=== PATIENT | male | born 1995 | race Caucasian/White ===

== ENCOUNTER 2022-07-06 21:02 | Emergency (ER) | payer OTHER ==
[2022-07-06 23:58] LABS: HIV (1/2) Antibody/Antigen Non-Reactive (NonReactive); HIV 1/2 INDEX 0.23 S/CO (<1.00); Hep C IgG Ab Non-Reactive (NonReactive); Hep C Index 0.07 S/CO (0-0.79)
[2022-07-07 00:45] LABS: HBSAB Concentration 2636.94 mIU/mL; Hep B Surf AB Reactive (NonReactive)
== END 2022-07-06 23:30 | disposition home or self-care (01) ==
LOC: ERS 21:02
DX: S80.212A Abrasion, left knee, initial encounter (principal); S40.812A Abrasion of left upper arm, initial encounter; S60.512A Abrasion of left hand, initial encounter; F17.210 Nicotine dependence, cigarettes, uncomplicated; Z77.21 Contact with and (suspected) exposure to potentially hazardous body fluids; Y04.2XXA Assault by strike against or bumped into by another person, initial encounter
CPT/HCPCS: 99283